=== PATIENT | male | born 1975 | race Caucasian/White ===

== ENCOUNTER → 2020-05-11 10:35 | Outpatient (CLI) | payer SELFPAY ==
[2020-05-11 10:26] VITALS: BMI 30.9
--- NOTE | 2020-05-11 10:35 | RAD_ITS ---
STUDY: X-RAY - LEFT ANKLE REASON FOR EXAM: Male, 44 years old. PATIENT FELL YESTERDAY. PAIN AND LOTS OF SWELLING ENTIRE LEFT ANKLE. TECHNIQUE: 3 view(s) of the ankle. COMPARISON: None. FINDINGS: Normal visualized distal tibia and fibula. Normal medial and lateral malleoli. Normal tibiotalar articulation and ankle mortise. Normal visualized talus and calcaneus. The visualized subtalar, talonavicular, calcaneocuboid and tarsal articulations are normal. Diffuse soft tissue swelling RAD/Ankle min 3 Views IMPRESSION: Diffuse soft tissue swelling. Electronically Signed: Magdaleno Marie, at 10:50 EDT , Service support ,
== END ==
PROVIDERS: Referring Provider Physician Assistant Surgical; Visit Provider Physician Assistant Surgical
DX: S93.402A Sprain of unspecified ligament of left ankle, initial encounter (principal); W19.XXXA Unspecified fall, initial encounter
CPT/HCPCS: 73610